=== PATIENT | male | born 1965 | race Caucasian/White ===

== ENCOUNTER 2016-09-17 15:16 | Emergency (ER) | payer MEDICARE ==
[~2016-09-17 15:16] MED LIST: ADDE20XR PO; ALBU1.25; AMLO10 PO; HYDR-2768 PO; KLON2TAB PO; LAMO150 PO; LOSA50TA PO; METH40TA9 PO; OMEP20CA5 PO; OXYC10 PO; PRED50 PO; [UNRECOGNIZED DRUG - CODE] INJ
[2016-09-17 15:18] VITALS: BP 148/78; PULSE 114; RESP 20; TEMP 98.7; O2SAT 93
== END 2016-09-17 15:17 | disposition left against medical advice (07) ==
LOC: NED 15:16
DX: Z53.21 Procedure and treatment not carried out due to patient leaving prior to being seen by health care provider (principal)
CPT/HCPCS: 99281